=== PATIENT | female | born 1950 | race Caucasian/White ===

== ENCOUNTER → 2019-09-26 | Outpatient (CLI) | payer MEDICARE, BC ==
[~2019-09-26] MED LIST: ALLOPURINOL 10100 M1 PO; APAP500 PO; LEVOTHYROXIN0.125 M1 PO; NAPROSYN500 MG PO; NEURONTIN 300300 M1 PO; OMEPRAZOLE20 M2 PO; PAXIL10 MG PO; PREDNISONE 10 M10 MG PO; TRAMADOL 50 MG50 MG PO
[2019-09-26 08:57] LABS: ANION GAP 7 mmol/L (7-16); BUN 15 mg/dL (7-18); CALCIUM 9.1 mg/dL (8.5-10.1); CHLORIDE 106 mmol/L (98-107); CHOLESTEROL 162 mg/dL (<200); CO2 30 mmol/L (21-32); CREATININE 1.2 mg/dL (0.6-1.3); GLUCOSE 104 mg/dL (70-99); HDL CHOLESTEROL 48 mg/dL (>40); LDL CHOLESTEROL 85 mg/dL (<100); POTASSIUM 4.1 mmol/L (3.5-5.1); SODIUM 143 mmol/L (136-145); TC:HDL 3.4 Ratio (Not establshd); TRIGLYCERIDE 149 mg/dL (<150); VLDL 30 mg/dL (<40)
[2019-09-26 09:04] LABS: SERUM ASSESSMENT Clear
== END ==
LOC: M.RAD 08:06
PROVIDERS: Internal Medicine
DX: Z12.31 Encounter for screening mammogram for malignant neoplasm of breast (principal); Z00.00 Encounter for general adult medical examination without abnormal findings

== ENCOUNTER → 2021-01-29 | Outpatient (CLI) | payer MEDICARE, BC | LOC: M.RAD 11:47 | PROVIDERS: ATTEND Internal Medicine | DX: Z12.31 Encounter for screening mammogram for malignant neoplasm of breast (principal) ==

== ENCOUNTER → 2021-02-04 | Outpatient (CLI) | payer MEDICARE, BC | LOC: M.ULTRA 10:30 | PROVIDERS: ATTEND Internal Medicine | DX: N60.01 Solitary cyst of right breast (principal); N63.10 Unspecified lump in the right breast, unspecified quadrant; R92.8 Other abnormal and inconclusive findings on diagnostic imaging of breast ==